=== PATIENT | male | born 1960 | race Caucasian/White ===

== ENCOUNTER 2021-10-18 05:43 | Outpatient (CLI) | payer BC ==
[~2021-10-18] VITALS: Ht 180.3 cm; Wt 97.2 kg
[2021-10-19] MEDS ORDERED: METF-397 PO (10:37)
[2021-10-19] MEDS ORDERED: METO-333 PO (10:37)
[2021-10-19] MEDS ORDERED: EMPA10TA PO (10:37)
[2021-10-19] MEDS ORDERED: ATOR10TA66 PO (10:37)
[2021-10-19] MEDS ORDERED: LISI10TA25 PO (10:37)
== END 2021-10-19 10:37 | disposition home or self-care (01) ==
LOC: PREOP 05:43
PROVIDERS: ATTEND Surgery
DX: Z01.818 Encounter for other preprocedural examination (principal)

== ENCOUNTER 2021-10-25 10:12 | Day surgery (SDC) | payer BC ==
[~2021-10-25] VITALS: Ht 180.3 cm; Wt 97.2 kg
[~2021-10-25 10:12] MED LIST: ATOR10TA66 PO; EMPA10TA PO; LISI10TA25 PO; METF-397 PO; METO-333 PO
[2021-10-25] MEDS ORDERED: LACTATED RINGERS 1,000 ML IV STA (10:21)
[2021-10-25] MEDS ORDERED: LIDOCAINE JELLY 2% 6 ML SYRINGE MM PRN (10:30)
[2021-10-25 10:45] VITALS: BP 157/94
--- NOTE | 2021-10-25 10:46 | Progress Note-Pre Operative ---
Pre-Operative Progress Note Date of Available H&P: Oct 25, 2021 Date H&P Reviewed: Oct 25, 2021 Time H&P Reviewed: 10:00 History & Physical: No changes noted Pre-Operative Diagnosis: screening ENRRIQUE RICKS MD Oct 25, 2021 10:46
--- NOTE | 2021-10-25 10:47 | Discharge Inst-Surgical ---
D/C Lap Instructions-MILLICENT Follow Up Activity as tolerated High Fiber Diet 25g or more per day Avoid Alcohol, Caffeine, Spicy [place] and Acid foods. Drink 64 fluid oz or more of fluids per day. Symptoms to Report: Fever over 101 degree F, Nausea/Vomiting If any problems/questions: Contact your physician or go to Emergency Room ENRRIQUE RICKS MD Oct 25, 2021 10:47
[2021-10-25] MEDS ORDERED: ONDANSETRON 4 MG (ZOFRAN) ORAL DISSOLVE TAB PO PRN (11:00)
[2021-10-25] MEDS ORDERED: ONDANSETRON 4 MG/2 ML (SDV) Z0FRAN IVP PRN (11:00)
[2021-10-25] MEDS ORDERED: PROPOFOL INJECTION 50 ML IV ONE (12:17)
[2021-10-25] MEDS ORDERED: MIDAZOLAM 2 MG/2 ML (VERSED) VIAL ONE (12:17)
[2021-10-25 12:53] VITALS: BP 135/77
[2021-10-25 12:55] VITALS: BP 134/83
--- NOTE | 2021-10-25 12:56 | Progress Note-Post Operative ---
Post-Operative Progess Note Surgeon (s)/Survey Worker (s) Surgeon ENRRIQUE RICKS MD Survey Worker: none Pre-Operative Diagnosis screening Post-Operative Diagnosis mild chronic stage 2 ext and int hemorrhoids, mild sigmoid diverticulosis. Procedure & Operative Findings Date of Procedure 10/25/21 Procedure Performed/Findings colonoscopy Anesthesia Type mac Estimated Blood Loss Estimated blood loss (mL): minimal Specimens/Packing Specimens Removed none ENRRIQUE RICKS MD Oct 25, 2021 12:56
--- NOTE | 2021-10-25 13:07 | Anesthesia-General Post-Op ---
MAC Patient Condition Mental Status/LOC: Same as Preop Cardiovascular: Satisfactory Nausea/Vomiting: Absent Respiratory: Satisfactory Pain: Controlled Complications: Absent Post Op Complications Complications None Follow Up Care/Instructions Patient Instructions None needed. Anesthesiology Discharge Order Discharge Order Patient is doing well, no complaints, stable vital signs, no apparent adverse anesthesia problems. No complications reported per nursing. MU RICH DO Oct 25, 2021 13:07
[2021-10-25 13:20] VITALS: BP 143/80
[2021-10-25 13:25] VITALS: BP 143/80
--- NOTE | 2021-10-25 20:47 | OPERATIVE REPORT ---
DATE OF SERVICE: 10/25/2021 ATTENDING PRIMARY CARE PHYSICIAN: Steven Rendon DO PREOPERATIVE DIAGNOSIS: Screening colonoscopy. POSTOPERATIVE DIAGNOSES: Mild chronic stage II external and internal hemorrhoids, mild sigmoid diverticulosis. PROCEDURE: Colonoscopy. SURGEON: Enrrique Sheikh MD. ANESTHESIA: Monitored anesthesia care. ESTIMATED BLOOD LOSS: Minimal. FINDINGS: Mild chronic stage II external and internal hemorrhoids, mild sigmoid diverticulosis. DISPOSITION: The patient tolerated the procedure well. INDICATIONS: The patient is a 61-year-old male, who was referred over to us for screening colonoscopy. He has not had a colonoscopy up to this point in his life. He states for the most part he is doing well, does not report any major issues with diarrhea nor constipation as well as no red blood per rectum nor any dark tarry stools. He also does not report any family history of colon cancer. DESCRIPTION OF PROCEDURE: The patient was brought to the endoscopy suite, laid in the left lateral decubitus position. After adequate IV pain and sedative medications and monitored anesthesia care, a digital rectal examination was performed. Mild chronic stage II external and internal hemorrhoids were identified, which were not actively edematous nor inflamed and no bleeding. Normal sphincter tone was felt and there were no palpable masses. Prostate gland was palpable and appeared normal. The endoscope was then intubated into the anus and rectum gently insufflated. The endoscope was then advanced through the valves of [place] of the rectum with no polyps or any neoplasms identified. We then proceeded through the sigmoid colon where mild sigmoid diverticulosis identified. The endoscope was then advanced and remainder of the descending, transverse and ascending colon to the cecum, which were normal. There were no polyps or any neoplasms identified throughout the colon or rectum. The endoscope was then slowly withdrawn while taking a second look and suctioning of residual air with no additional findings. The patient tolerated the procedure well. We will recommend medical management with a high fiber diet with addition of a fiber supplement, which should equal or exceed 30 grams daily as well as significant amounts of water to promote soft stools on a daily basis. If he is asymptomatic, he does not need another colonoscopy for another 10 years. Job ID: [id number] DocumentID: [id number] Dictated Date: 10/25/2021 13:12:48 Supervisor Wool [employer]aring Date: 10/25/2021 20:46:26 Dictated By: ENRRIQUE SHEIKH MD
== END 2021-10-25 13:25 | disposition home or self-care (01) ==
LOC: ENDO 10:12
PROVIDERS: ATTEND Surgery
DX: Z12.11 Encounter for screening for malignant neoplasm of colon (principal); K57.30 Diverticulosis of large intestine without perforation or abscess without bleeding; K64.1 Second degree hemorrhoids; K64.4 Residual hemorrhoidal skin tags